=== PATIENT | male | born 1980 | race Caucasian/White ===

== ENCOUNTER 2018-12-25 05:27 | Emergency (ER) | payer BC ==
--- NOTE | 2018-12-25 05:47 | EDM.PDOC ---
ED HPI GENERAL MEDICAL PROBLEM - General Chief Complaint: Flank Pain Stated Complaint: LOWER BACK PAIN Time Seen by Provider: 12/25/18 05:39 - History of Present Illness INITIAL COMMENTS - FREE TEXT/NARRATIVE: HISTORY AND PHYSICAL: History of present illness: The patient is a 38-year-old male who presents with mid back pain a little bit more on the left side that has been ongoing for the last few weeks. He has not taken any [id number]-[id number]-[id number] meds for this pain. He denies any trauma and says he cannot pinpoint the exact time that it started but it was gradual in onset and seems to be more on the left side but it is not flank pain and he has no hematuria dysuria or urgency. He said no fever chills nausea vomiting and is eating and drinking normally. The patient does movements and exercise with his work and says that the pain seems to be worse when he wakes in the morning and is better when he gets moving and is also worse if he has to sit down for prolonged periods of time and then gets up to move. He also tells me that when he does an activity that requires him to go from a bent position to standing upright pain seems to be worse. The pain does not radiate to his legs that he has no bowel or bladder disturbances. When I asked him why he has not tried any [id number] meds for the pain he says he doesn't usually like to take them so he did not try any. He denies any trauma. Review of systems: As per history of present illness and below otherwise all systems reviewed and negative. Past medical history: As per history of present illness and as reviewed below otherwise noncontributory. Surgical history: As per history of present illness and as reviewed below otherwise noncontributory. Social history: No reported history of drug or alcohol abuse. Family history: As per history of present illness and as reviewed below otherwise noncontributory. Physical exam: General: Well-developed well-nourished man who is nontoxic and moves very easily in the ED. He ambulated quickly from his room to the bathroom on my visual inspection. Vital signs are noted by me. I had the patient bent over when he was sitting on the cart and then sit up and he said the motion of sitting up made the pain worse. HEENT: Atraumatic, normocephalic, , negative for conjunctival pallor or scleral icterus, mucous membranes moist, throat clear, neck supple, nontender, trachea midline. Lungs: Clear to auscultation, breath sounds equal bilaterally, chest nontender. Heart: S1S2, regular rate and rhythm no overt murmurs Abdomen: Soft, nondistended, nontender. NABS Pelvis: Stable nontender. Genitourinary: Deferred. Rectal: Deferred. Extremities: Atraumatic, full range of motion without defects or deficits. Neurovascular unremarkable. Neuro: Awake, alert, oriented. Cranial nerves II through XII unremarkable. Cerebellum unremarkable. Motor and sensory unremarkable throughout. Exam nonfocal. Patellar reflexes are +2 over 4 bilaterally and dorsi and plantar flexion are intact 5/5 inclusive of the great toe. Inversion any urgent of the feet are intact. Back: No midline step-offs in his defects of the thoracic or lumbar spine and no posterior pelvis tenderness. There is reproducible pain at the left paraspinal area at the lower thoracic and upper lumbar spine and when I palpate this area I can reproduce the tenderness. Diagnostics: UA with reflex micro & culture Therapeutics: Toradol Impression: Back pain chronic Definitive disposition and diagnosis as appropriate pending reevaluation and review of above. middle back Pain Score (Numeric/FACES): 7 - Related Data Allergies Allergy/AdvReac Type Severity Reaction Status Date / Time Penicillins Allergy Rash Verified 12/25/18 05:40 Home Meds: Home Meds . [No Known Home Meds] 05/03/15 [History] Past Medical History - Past Health History Medical/Surgical History: Denies Medical/Surgical History HEENT History: Reports: None Gastrointestinal History: Reports: None - Infectious Disease History Infectious Disease History: Reports: Chicken Pox - Past Surgical History HEENT Surgical History: Reports: Other (See Below) Other HEENT Surgeries/Procedures: fx mandible with wiring GI Surgical History: Reports: Other (See Below) Other GI Surgeries/Procedures: upper abdominal wall hernia repair Social & Family History - Family History Family Medical History: Noncontributory - Tobacco Use Smoking Status *Q: Current Every Day Smoker Years of Tobacco use: 20 Packs/Tins Daily: 1 - Caffeine Use Caffeine Use: Reports: Coffee - Recreational Drug Use Recreational Drug Use: No ED ROS GENERAL - Review of Systems Review Of Systems: ROS reveals no pertinent complaints other than HPI. ED EXAM, GENERAL - Physical Exam Exam: See Below (See dictation) Course - Vital Signs Last Recorded V/S: Last Vital Signs Temp 36.3 C 12/25/18 05:37 Pulse 94 12/25/18 05:37 Resp 18 12/25/18 05:37 BP 116/88 12/25/18 05:37 Pulse Ox 100 12/25/18 05:37 - Orders/Labs/Meds Labs: Laboratory Tests 12/25/18 Range/Units 05:45 Urine Color YELLOW Urine Appearance CLEAR Urine pH 5.5 (5.0-8.0) Ur Specific Ney 1.020 (1.001-1.035) Urine Protein NEGATIVE (NEGATIVE) mg/dL Urine Glucose (UA) NEGATIVE (NEGATIVE) mg/dL Urine Ketones NEGATIVE (NEGATIVE) mg/dL Urine Occult Blood NEGATIVE (NEGATIVE) Urine Nitrite NEGATIVE (NEGATIVE) Urine Bilirubin NEGATIVE (NEGATIVE) Urine Urobilinogen 0.2 (<2.0) EU/dL Ur Leukocyte Esterase NEGATIVE (NEGATIVE) Meds: Medications Discontinued Medications Generic Name Dose Route Start Last Admin Trade Name Christi PRN Reason Stop Dose Admin Ketorolac Tromethamine 60 mg 12/25/18 05:52 12/25/18 06:09 Toradol IM 12/25/18 05:53 60 mg ONETIME ONE Administration Departure - Departure Time of Disposition: 06:29 Disposition: Home, Self-Care 01 Condition: Good Clinical Impression: Back pain Qualifiers: Back pain location: low back pain Chronicity: chronic Back pain laterality: unspecified Sciatica presence: without sciatica Qualified Code(s): M54.5 - Low back pain - Discharge Information Referrals: Delvin Noriega MD [Primary Care Provider] - Forms: ED Department Discharge Additional Instructions: The following information is given to patients seen in the emergency department who are being discharged to home. This information is to outline your options for follow-up care. We provide all patients seen in our emergency department with a follow-up referral. The need for follow-up, as well as the timing and circumstances, are variable depending upon the specifics of your emergency department visit. If you don't have a primary care physician on staff, we will provide you with a referral. We always advise you to contact your personal physician following an emergency department visit to inform them of the circumstance of the visit and for follow-up with them and/or the need for any referrals to a consulting specialist. The emergency department will also refer you to a specialist when appropriate. This referral assures that you have the opportunity for followup care with a specialist. All of these measure are taken in an effort to provide you with optimal care, which includes your followup. Under all circumstances we always encourage you to contact your private physician who remains a resource for coordinating your care. When calling for followup care, please make the office aware that this follow-up is from your recent emergency room visit. If for any reason you are refused follow-up, please contact the [facility] emergency department at and ask to speak to the emergency department charge nurse. [facility] Primary care- Internal Medicine and Family [address] [address] Use ice after any activity such as work and then apply and switch to heat before bedtime. Do some stretching exercises we discussed open up the area. Use pain medications as prescribed for the pain and call and schedule a follow-up appointment with one of our providers in the clinic for reevaluation and further care. Return to ER as needed and as discussed.
[2018-12-25] MEDS ORDERED: Ketorolac 60 MG/2 ML SDV IM ONE (05:52)
--- NOTE | 2018-12-25 06:28 | CR ---
INDICATION: Back pain. TECHNIQUE: Three-view lumbar spine. FINDINGS: Mild curvature convex right. Moderate disk degenerative narrowing at L5-S1. No listhesis or compression fracture. SI joints unremarkable. IMPRESSION: L5-S1 discogenic narrowing. Stable since prior exam 02/11/2014. Dictated by Samson Santoro MD @ Dec 25 2018 6:26AM Signed by Dr. Samson Santoro @ Dec 25 2018 6:26AM
[2018-12-25 06:46] VITALS: BP 108/79
== END 2018-12-25 06:42 | disposition home or self-care (01) ==
LOC: MW.ED 05:27
DX: G89.29 Other chronic pain (principal); M54.6 Pain in thoracic spine; F17.210 Nicotine dependence, cigarettes, uncomplicated; Z88.0 Allergy status to penicillin
CPT/HCPCS: 72100; 81003; 96372; 99283; J1885

== ENCOUNTER 2019-05-29 04:20 | Emergency (ER) | payer BC ==
[2019-05-29] MEDS ORDERED: Ketorolac 60 MG/2 ML SDV IM ONE (04:39)
[2019-05-29 04:48] VITALS: BP 128/81
--- NOTE | 2019-05-29 04:58 | EDM.PDOC ---
<Carlos Araya - Last Filed: 05/29/19 04:58> ED HPI GENERAL MEDICAL PROBLEM - General Chief Complaint: Back Pain or Injury Stated Complaint: BACK PAIN- BETWEEN SHOULDER BLADES Time Seen by Provider: 05/29/19 04:30 - History of Present Illness INITIAL COMMENTS - FREE TEXT/NARRATIVE: HISTORY AND PHYSICAL: History of present illness: 38 year-old male with a significant history degenerative disc disease and chronic back pain presents to the emergency department this morning for evaluation of his upper back pain. The patient has been suffering from 5/10 chronic back pain for approximately 5 years. However in the last month the patient's back pain has progressed to a 9 out of 10. He has no recent traumas or falls or precipitating events to cause a rise in his pain level. He has not found any relieving measures for his pain. He occasionally will take over-the- counter ibuprofen which is minimally effective. He denies fevers or chills, shortness of breath or cough, anterior chest pain, abdominal pain, nausea or vomiting. His last seen by his neurologist 5 years ago. The patient was recently seen by his primary care provider on Saturday and is supposed to follow up with his neurologist from [place]. In the emergency department the patient is requesting a referral for a MRI. Review of systems: As per history of present illness and below otherwise all systems reviewed and negative. Past medical history: As per history of present illness and as reviewed below otherwise noncontributory. Surgical history: As per history of present illness and as reviewed below otherwise noncontributory. Social history: No reported history of drug or alcohol abuse. Family history: As per history of present illness and as reviewed below otherwise noncontributory. Physical exam: Constitutional: Well nourished, well developed non toxic appearing in no distress. HEENT: Atraumatic, normocephalic, pupils reactive, negative for conjunctival pallor or scleral icterus, mucous membranes moist, throat clear, neck supple, nontender, trachea midline. Lungs: Clear to auscultation, breath sounds equal bilaterally, chest nontender. Heart: S1S2, regular, negative for clicks, rubs, or JVD. Abdomen: Soft, nondistended, nontender. Negative for masses or hepatosplenomegaly. Negative for costovertebral tenderness. Pelvis: Stable nontender. Genitourinary: Deferred. Rectal: Deferred. Extremities: Atraumatic, negative for cords or calf pain. Neurovascular unremarkable. Neuro: Awake, alert, oriented. Cranial nerves II through XII unremarkable. Cerebellum unremarkable. Motor and sensory unremarkable throughout. Exam nonfocal. Spine: No tenderness reported to palpation no bony step off appreciated. Diagnostics: None- Patient declined xray Therapeutics: Toradol Impression: Chronic Back pain Plan: Patient was offered radiographic imaging of his back which he has declined at this time. Toradol will be given to him in the emergency department and he will be discharged home. He is to follow-up with his primary care provider to schedule a outpatient MRI. The patient informed me that he will follow-up with his neurologist in [facility] once his MRI is completed. The patient is in agreement to the plan of care. All questions were answered. Definitive disposition and diagnosis as appropriate pending reevaluation and review of above. Middle Back Pain Score (Numeric/FACES): 10 - Related Data Allergies Allergy/AdvReac Type Severity Reaction Status Date / Time Penicillins Allergy Rash Verified 05/29/19 04:33 Home Meds: Home Meds . [No Known Home Meds] 05/29/19 [History] Past Medical History - Past Health History Medical/Surgical History: Denies Medical/Surgical History HEENT History: Reports: None Gastrointestinal History: Reports: None - Infectious Disease History Infectious Disease History: Reports: Chicken Pox - Past Surgical History HEENT Surgical History: Reports: Other (See Below) Other HEENT Surgeries/Procedures: fx mandible with wiring GI Surgical History: Reports: Other (See Below) Other GI Surgeries/Procedures: upper abdominal wall hernia repair Social & Family History - Family History Family Medical History: Noncontributory - Tobacco Use Smoking Status *Q: Former Smoker Used Tobacco, but Quit: Yes Month/Year Tobacco Last Used: 1 - Caffeine Use Caffeine Use: Reports: Coffee - Recreational Drug Use Recreational Drug Use: No Course - Vital Signs Last Recorded V/S: Last Vital Signs Temp 36.1 C 05/29/19 04:34 Pulse 90 05/29/19 04:34 Resp 16 05/29/19 04:34 BP 128/81 05/29/19 04:34 Pulse Ox 100 05/29/19 04:34 - Orders/Labs/Meds Meds: Medications Discontinued Medications Generic Name Dose Route Start Last Admin Trade Name Freq PRN Reason Stop Dose Admin Ketorolac Tromethamine 60 mg 05/29/19 04:39 05/29/19 04:52 Toradol IM 05/29/19 04:40 60 mg ONETIME ONE Administration Departure - Departure Disposition: Home, Self-Care 01 Clinical Impression: Chronic back pain Qualifiers: Back pain location: thoracic back pain Back pain laterality: unspecified Qualified Code(s): M54.6 - Pain in thoracic spine; G89.29 - Other chronic pain - Discharge Information Referrals: Hunter Broderick MD [Primary Care Provider] - Forms: ED Department Discharge Additional Instructions: The following information is given to patients seen in the emergency department who are being discharged to home. This information is to outline your options for follow-up care. We provide all patients seen in our emergency department with a follow-up referral. The need for follow-up, as well as the timing and circumstances, are variable depending upon the specifics of your emergency department visit. If you don't have a primary care physician on staff, we will provide you with a referral. We always advise you to contact your personal physician following an emergency department visit to inform them of the circumstance of the visit and for follow-up with them and/or the need for any referrals to a consulting specialist. The emergency department will also refer you to a specialist when appropriate. This referral assures that you have the opportunity for followup care with a specialist. All of these measure are taken in an effort to provide you with optimal care, which includes your followup. Under all circumstances we always encourage you to contact your private physician who remains a resource for coordinating your care. When calling for followup care, please make the office aware that this follow-up is from your recent emergency room visit. If for any reason you are refused follow-up, please contact the [facility] emergency department at and ask to speak to the emergency department charge nurse. [facility] Primary care- Internal Medicine and Family [address] [address] Please contact your provider in the clinic to get an order for an MRI as requested as this physician/mid-level can place the order will give you a prescription for such an order and you can have it done here at our hospital or elsewhere as you choose. Continue with home management of your back pain as previously and return to ER as needed and as discussed <Migdalia Alvarez - Last Filed: 05/29/19 05:10> ED HPI GENERAL MEDICAL PROBLEM - History of Present Illness INITIAL COMMENTS - FREE TEXT/NARRATIVE: This is Dr. Alvarez dictating addendum note as I am the supervising physician on this case. According to my computer survey of this patient he used to see our pain specialist Dr. Quinten early in 2012 but is currently not seeing a pain specialist and just connected with a new provider at this Saturday. The name of the provider that he gave us is not anyone that I am familiar with either here with our clinic or at [place] and he says that he is supposed to see a neurologist from [place], again we have Dr. Lang and I am not sure where this neurologist is from or where he will be seeing the visiting physician. He did not receive any medications that we are aware of from his visit with her clinic provider and he told triage and his primary care nurse that he wanted a referral for an MRI. The mid level student did discuss with him that his provider in the clinic can give him that referral and/or schedule that test and that that cannot be done from the ED. There is nothing new or different about his pain today and he has no anterior chest pain shortness of breath fevers chills or upper respiratory tract infection symptoms. His vitals are stable and he has no acute neurologic changes on exam. The specific does not want any more imaging as he said he had a recent x-ray. He says that at this point he would just like some Toradol as this worked very nicely in the past. I personally saw this patient back in December of this year for lumbar back pain and gave him advice on follow-up at that time. He ambulated into the ED without distress and is moving all extremities without any distress. We'll plan on advising him to connect with his provider in the clinic for further referral for testing as needed ED ROS GENERAL - Review of Systems Review Of Systems: ROS reveals no pertinent complaints other than HPI. ED EXAM, UPPER BACK/NECK PAIN - Physical Exam Exam: See Below (See dictation) Departure - Departure Time of Disposition: 05:09 Condition: Good
== END 2019-05-29 05:21 | disposition home or self-care (01) ==
LOC: MW.ED 04:20
DX: G89.29 Other chronic pain (principal); M54.6 Pain in thoracic spine; Z88.0 Allergy status to penicillin; Z87.891 Personal history of nicotine dependence
CPT/HCPCS: 96372; 99283; J1885

== ENCOUNTER 2019-08-17 04:03 | Emergency (ER) | payer OTHER, BC ==
[2019-08-17] MEDS ORDERED: Ketorolac 60 MG/2 ML SDV IM ONE (04:15)
[2019-08-17 04:55] VITALS: BP 133/94; PULSE 71
--- NOTE | 2019-08-17 04:59 | EDM.PDOC ---
ED HPI GENERAL MEDICAL PROBLEM - General Chief Complaint: Back Pain or Injury Stated Complaint: BACK PAIN Time Seen by Provider: 08/17/19 04:57 - History of Present Illness INITIAL COMMENTS - FREE TEXT/NARRATIVE: HISTORY AND PHYSICAL: History of present illness: Patient's 39-year-old white male presents with a concern of lumbar strain he states is currently lifted a heavy item at work. He denies numbness weakness incontinence or retention of bowel or bladder Review of systems: As per history of present illness and below otherwise all systems reviewed and negative. Past medical history: As per history of present illness and as reviewed below otherwise noncontributory. Surgical history: As per history of present illness and as reviewed below otherwise noncontributory. Social history: No reported history of drug or alcohol abuse. Family history: As per history of present illness and as reviewed below otherwise noncontributory. Physical exam: HEENT: Atraumatic, normocephalic, pupils reactive, negative for conjunctival pallor or scleral icterus, mucous membranes moist, throat clear, neck supple, nontender, trachea midline. Lungs: Clear to auscultation, breath sounds equal bilaterally, chest nontender. Heart: S1S2, regular, negative for clicks, rubs, or JVD. Abdomen: Soft, nondistended, nontender. Negative for masses or hepatosplenomegaly. Negative for costovertebral tenderness. Pelvis: Stable nontender. Genitourinary: Deferred. Rectal: Deferred. Extremities: Atraumatic, negative for cords or calf pain. Neurovascular unremarkable. Neuro: Awake, alert, oriented. Cranial nerves II through XII unremarkable. Cerebellum unremarkable. Motor and sensory unremarkable throughout. Exam nonfocal. Diagnostics: None Therapeutics: Toradol 60 mg IM Impression: #1 lumbar strain Definitive disposition and diagnosis as appropriate pending reevaluation and review of above. BACK PAIN Pain Score (Numeric/FACES): 8 - Related Data Allergies Allergy/AdvReac Type Severity Reaction Status Date / Time Penicillins Allergy Rash Verified 08/17/19 04:14 Home Meds: Home Meds . [No Known Home Meds] 05/29/19 [History] Past Medical History - Past Health History Medical/Surgical History: Denies Medical/Surgical History HEENT History: Reports: None Gastrointestinal History: Reports: None - Infectious Disease History Infectious Disease History: Reports: Chicken Pox - Past Surgical History HEENT Surgical History: Reports: Other (See Below) Other HEENT Surgeries/Procedures: fx mandible with wiring GI Surgical History: Reports: Other (See Below) Other GI Surgeries/Procedures: upper abdominal wall hernia repair Social & Family History - Family History Family Medical History: Noncontributory - Tobacco Use Smoking Status *Q: Never Smoker - Caffeine Use Caffeine Use: Reports: None - Recreational Drug Use Recreational Drug Use: No ED ROS GENERAL - Review of Systems Review Of Systems: ROS reveals no pertinent complaints other than HPI. ED EXAM, GENERAL - Physical Exam Exam: See Below (See dictation) Course - Vital Signs Last Recorded V/S: Last Vital Signs Temp 36.4 C 08/17/19 04:06 Pulse 71 08/17/19 04:55 Resp 16 08/17/19 04:55 BP 133/94 H 08/17/19 04:55 Pulse Ox 97 08/17/19 04:55 - Orders/Labs/Meds Meds: Medications Discontinued Medications Generic Name Dose Route Start Last Admin Trade Name Christi PRN Reason Stop Dose Admin Ketorolac Tromethamine 60 mg 08/17/19 04:15 08/17/19 04:28 Toradol IM 08/17/19 04:16 60 mg ONETIME ONE Administration Departure - Departure Time of Disposition: 04:58 Disposition: Home, Self-Care 01 Condition: Good Clinical Impression: Lumbar strain - Discharge Information Referrals: Hunter Broderick MD [Primary Care Provider] - Additional Instructions: The following information is given to patients seen in the emergency department who are being discharged to home. This information is to outline your options for follow-up care. We provide all patients seen in our emergency department with a follow-up referral. The need for follow-up, as well as the timing and circumstances, are variable depending upon the specifics of your emergency department visit. If you don't have a primary care physician on staff, we will provide you with a referral. We always advise you to contact your personal physician following an emergency department visit to inform them of the circumstance of the visit and for follow-up with them and/or the need for any referrals to a consulting specialist. The emergency department will also refer you to a specialist when appropriate. This referral assures that you have the opportunity for followup care with a specialist. All of these measure are taken in an effort to provide you with optimal care, which includes your followup. Under all circumstances we always encourage you to contact your private physician who remains a resource for coordinating your care. When calling for followup care, please make the office aware that this follow-up is from your recent emergency room visit. If for any reason you are refused follow-up, please contact the [facility] emergency department at and asked to speak to the emergency department charge nurse. Follow-up primary medical doctor as needed as discussed return as needed as discussed
== END 2019-08-17 05:04 | disposition home or self-care (01) ==
LOC: MW.ED 04:03
DX: S39.012A Strain of muscle, fascia and tendon of lower back, initial encounter (principal); Z88.0 Allergy status to penicillin; X50.0XXA Overexertion from strenuous movement or load, initial encounter; Y99.0 Civilian activity done for income or pay
CPT/HCPCS: 96372; 99283; J1885